=== PATIENT | male | born 1955 | race Caucasian/White ===

== ENCOUNTER → 2017-07-02 | Outpatient (CLI) | payer OTHER ==
[~2017-07-02] MED LIST: AMITRYPTYLINE; ASPIRIN; LISINOPRIL; METFORMIN; NEXIUM; PROZAC
--- NOTE | ~2017-07-02 | CT2 ---
[facility] A Service of [facility] RADIOLOGY TEXT RESULTS PATIENT: KEENAN CARRILLO RAY LOCATION: [facility]AT : 53 UNIT #: [id number] AGE: [address]: Lizandro Jaffe MD SEX: M ORDER DR: [id number] [facility]. [place], [place] [address] [id number] O MR#: [id number] Acc #: [id number] NAME: KEENAN CARRILLO : 1955 SEX: M STUDY DATE/TIME: 07/02/2017 9:23 UNIT: [facility] ROOM: STUDY DESCRIPTION: CT Abd and Pelv W Cont Attending Physician: Lizandro Jaffe M.D. Referring Physician: Lizandro Jaffe M.D. Ordering Physician: Lizandro Jaffe M.D. Primary Care Physician: Lizandro Jaffe M.D. MEDICAL IMAGING REPORT This report is preliminary unless electronic signature is present EXAM CT abdomen and pelvis with contrast INDICATION Right flank pain for the past 3-4 months. PROCEDURE Contrast-enhanced CT of the abdomen and pelvis. This CT exam was performed with one or more of the following radiation dose reduction techniques: automatic exposure control, adjustment of mA and/or kV according to patient size, and iterative reconstruction. COMPARISON 07/25/2015 FINDINGS ABDOMEN WITH CONTRAST: Included lung bases are clear. 8.0 mm cyst segment 4 of the liver. The spleen, kidneys, adrenal glands, pancreas and gallbladder are unremarkable. Uncomplicated sigmoid diverticula. Bowel loops nondilated. Appendix is normal. PELVIS WITH CONTRAST: No pelvic mass or fluid. No aggressive appearing bone lesion. IMPRESSION 1. No acute findings in the abdomen or pelvis. 2. Scattered uncomplicated colonic diverticula. Dictated by... Manuel Leal M.D. [facility] A Service [facility] RADIOLOGY TEXT RESULTS PATIENT: KEENAN CARRILLO RAY LOCATION: [facility]AT : 53 UNIT #: [id number] AGE: [address]: Lizandro Jaffe MD SEX: M ORDER DR: THIS IS AN ELECTRONICALLY VERIFIED REPORT Manuel Leal M.D. at 07/03/2017 7:15 AM Katiana TD: 07/02/2017 12:49 JOB #: [id number] MEDICAL IMAGING REPORT Page 1 of 1 COPY
[2017-07-02 14:51] LABS: POC - CREATININE 0.96 mg/dL (0.64-1.27); POC - GFR >60.0 mL/min (>60)
== END | disposition home or self-care (01) ==
LOC: CCAT 07:53
PROVIDERS: Internal Medicine
DX: R10.9 Unspecified abdominal pain (principal); K57.30 Diverticulosis of large intestine without perforation or abscess without bleeding
CPT/HCPCS: 74177; 82565; Q9967